=== PATIENT | female | born 1975 | race Caucasian/White ===

== ENCOUNTER 2022-07-15 21:51 | Outpatient (RCR) | payer OTHER, SELFPAY ==
[2022-07-06 18:55] LABS: Basophils Absolute Auto 0.04 K/uL (0.00-0.30); Basophils Percent Auto 0.4 % (0.0-3.0); Eosinophils Absolute Auto 0.19 K/uL (0.00-0.50); Eosinophils Percent Auto 1.8 % (0.0-7.0); Hematocrit 45.1 % (33.0-51.0); Hemoglobin* 14.7 gm/dL (12.0-16.0); Lymphocytes Absolute Auto 4.26 K/uL (0.90-2.90); Lymphocytes Percent Auto 39.6 % (20-44); Mean Corpuscular HGB Conc 33 gm/dL (32-36); Mean Corpuscular Hemoglobin 28 pg (26-34); Mean Corpuscular Volume 87 fL (80-100); Monocytes Percent Auto 4.8 % (0.0-11.0); Neutrophils Absolute Auto 5.65 K/uL (1.7-7.0); Neutrophils Percent Auto 52.5 % (42.0-72.0); Platelet Count* 350 K/uL (140-440); RDW Coefficient of Variation % 13.3 % (11.5-15.5); White Blood Count* 10.76 K/uL (4.50-11.00)
[2022-07-06 19:00] LABS: Slide Review Reflex No
[2022-07-15 23:46] LABS: Basophils Absolute Auto 0.08 K/uL (0.00-0.30); Basophils Percent Auto 0.8 % (0.0-3.0); Eosinophils Absolute Auto 0.19 K/uL (0.00-0.50); Eosinophils Percent Auto 1.9 % (0.0-7.0); Hematocrit 47.1 % (33.0-51.0); Hemoglobin* 15.2 gm/dL (12.0-16.0); Immature Granulocytes Abs Auto 0.06 K/uL (0.00-0.30); Lymphocytes Absolute Auto 3.13 K/uL (0.90-2.90); Lymphocytes Percent Auto 31.6 % (20-44); Mean Corpuscular HGB Conc 32 gm/dL (32-36); Mean Corpuscular Hemoglobin 28 pg (26-34); Mean Corpuscular Volume 87 fL (80-100); Monocytes Percent Auto 5.1 % (0.0-11.0); Neutrophils Absolute Auto 5.94 K/uL (1.7-7.0); Platelet Count* 323 K/uL (140-440); RDW Coefficient of Variation % 12.9 % (11.5-15.5); Red Blood Count 5.41 m/uL (4.00-5.20)
[2022-07-16 00:12] LABS: Slide Review Reflex No
[2022-10-21 17:32] LABS: Basophils Percent Auto 0.5 % (0.0-3.0); Eosinophils Percent Auto 1.5 % (0.0-7.0); Hematocrit 46.6 % (33.0-51.0); Hemoglobin* 15.3 gm/dL (12.0-16.0); Immature Granulocytes Pct Auto 0.6 %; Mean Corpuscular HGB Conc 33 gm/dL (32-36); Mean Corpuscular Hemoglobin 28 pg (26-34); Mean Corpuscular Volume 86 fL (80-100); Monocytes Percent Auto 6.3 % (0.0-11.0); Neutrophils Percent Auto 59.1 % (42.0-72.0); Platelet Count* 406 K/uL (140-440); RDW Coefficient of Variation % 12.9 % (11.5-15.5); Red Blood Count 5.44 m/uL (4.00-5.20); White Blood Count* 11.35 K/uL (4.50-11.00)
[2022-10-21 17:36] LABS: Slide Review Reflex No
== END 2023-06-17 11:50 | disposition home or self-care (01) ==
LOC: LAB 21:51
PROVIDERS: Visit Provider Registered Nurse Psychiatric/Mental Health
DX: F25.1 Schizoaffective disorder, depressive type (principal); Z79.899 Other long term (current) drug therapy
CPT/HCPCS: 36415; 85025

== ENCOUNTER 2022-07-29 21:12 | Outpatient (REF) | payer OTHER, SELFPAY ==
[2022-07-29 21:30] LABS: Chloride* 102 mmol/L (96-114)
[2022-07-29 21:31] LABS: Potassium* 4.3 mmol/L (3.6-5.1); Sodium* 136 mmol/L (135-149)
[2022-07-29 21:33] LABS: Carbon Dioxide* 23 mmol/L (20-32); Cholesterol* 177 mg/dL (90-199); Creatinine* 0.8 mg/dL (0.5-1.5); Estimated Glomerular Filt Rate 92 ml/min
[2022-07-29 21:34] LABS: Alanine Aminotransferase* 25 U/L (4-35); Alkaline Phosphatase* 120 U/L (40-150); Aspartate Amino Transferase* 26 U/L (12-35); Bilirubin Total* 0.4 mg/dL (0.1-1.5); Blood Urea Nitrogen* 7 mg/dL (5-24); Calcium* 9.3 mg/dL (8.4-10.6); Glucose* 119 mg/dL (60-115); HDL Cholesterol* 42 mg/dL (>=50); LDL Cholesterol Calculated 106 mg/dL (<100); Total Protein* 6.7 g/dL (6.0-8.3); Triglycerides* 145 mg/dL (40-149)
[2022-07-29 21:35] LABS: Hemoglobin A1C* 5.16 % (0-5.6)
[2022-07-29 21:42] LABS: Basophils Percent Auto 0.6 % (0.0-3.0); Eosinophils Percent Auto 1.4 % (0.0-7.0); Hematocrit 45.9 % (33.0-51.0); Hemoglobin* 15.1 gm/dL (12.0-16.0); Immature Granulocytes Pct Auto 0.8 %; Lymphocytes Percent Auto 28.3 % (20-44); Mean Corpuscular HGB Conc 33 gm/dL (32-36); Mean Corpuscular Hemoglobin 29 pg (26-34); Mean Corpuscular Volume 87 fL (80-100); Monocytes Percent Auto 6.2 % (0.0-11.0); Neutrophils Percent Auto 62.7 % (42.0-72.0); Platelet Count* 325 K/uL (140-440); Slide Review Reflex No; White Blood Count* 12.35 K/uL (4.50-11.00)
== END 2022-07-29 21:13 | disposition home or self-care (01) ==
LOC: NPINS 21:12
PROVIDERS: Visit Provider Registered Nurse Psychiatric/Mental Health
DX: F20.9 Schizophrenia, unspecified (principal); Z79.899 Other long term (current) drug therapy
CPT/HCPCS: 80053; 80061; 83036; 85025